=== PATIENT | male | born 1995 | race Caucasian/White ===

== ENCOUNTER 2025-06-01 14:42 | Emergency (ER) | payer BC ==
[2025-06-01] MEDS ORDERED: Ketorolac Tromethamine 30 MG (1 mL) VIAL ONE ×2 (15:00→15:53)
[2025-06-01] MEDS ORDERED: Ondansetron PF 4 MG/2 ML Vial ONE ×2 (15:01→20:43)
== END 2025-06-01 21:04 | disposition short-term general hospital (02) ==
LOC: ERS 14:42
DX: S32.402A Unspecified fracture of left acetabulum, initial encounter for closed fracture (principal); S32.512A Fracture of superior rim of left pubis, initial encounter for closed fracture; S32.302A Unspecified fracture of left ilium, initial encounter for closed fracture; Z55.6 Problems related to health literacy; W22.8XXA Striking against or struck by other objects, initial encounter
CPT/HCPCS: 72170; 72192; 96374; 96375; 96376; G0390; J1885; J2270; J2405; J3010